=== PATIENT | female | born 1960 | race Caucasian/White ===

== ENCOUNTER 2024-05-13 12:51 | Day surgery (SDC) | payer OTHER, SELFPAY ==
[2024-05-13] VITALS (7 sets, daily range): BP systolic 110–155; BP diastolic 61–87; PULSE 104–117; RESP 14–18; TEMP 36.2–36.4; O2SAT 96–99
--- NOTE | ~2024-05-13 | CT_ITS ---
Non-contrast CT scan of the Abdomen and Pelvis Clinical indication: Kidney stones Technique: 2.5 mm axial scans were obtained through the abdomen and pelvis without intravenous or or al contrast. Dose reduction technique was used on this scan by utilizing automated exposure control a nd iterative reconstruction technique. The dose-length product (DLP) was 1302.85 mGy-cm. Findings: Images through the lung bases reveal bibasilar scarring or atelectasis. There is a 5 mm mid to distal left ureteral stone (axial image 128), with moderate left hydroureteron ephrosis to this level. There is an 8 mm stone at the right UVJ region, with severe right hydroureter onephrosis to this level. Additional 1.3 cm ovoid stone at the right lower poles present. Additional punctate nonobstructing right renal stones are probably present. The liver, spleen, pancreas, and adrenals appear normal. Cholecystectomy clips are present. There is mild atherosclerotic calcification of the abdominal aorta. 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 There is no evidence of bowel obstruction. Images through the pelvis were performed. There is no evidence of ascites or lymphadenopathy. Urinary bladder unremarkable. No pelvic mass seen. Status post hysterectomy. Impression: 8 mm right UVJ stone, though severe right hydroureteronephrosis to this level. 5 mm mid to distal left ureteral stone, with moderate left hydroureteronephrosis to this level. Additional nonobstructing right renal stones, as above. Reviewed, dictated and finalized at [facility]. Impression: 8 mm right UVJ stone, though severe right hydroureteronephrosis to this level. 5 mm mid to distal left ureteral stone, with moderate left hydroureteronephrosi s to this level. Additional nonobstructing right renal stones, as above.
--- NOTE | ~2024-05-13 | XR_ITS ---
Supine and upright views of the abdomen Clinical history: Kidney stones Findings: Bowel gas pattern is nonspecific. No evidence for obstruction or free air. Also 8 mm distal ureteral stone the right side, as seen on CT scan performed concurrently. Multiple additional bilate ral renal stones seen on CT are relatively poorly seen radiographically. 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 Osseous structures are intact. Impression: 8 mm distal right ureteral stone likely is seen. Additional bilateral renal stones and left ureteral stone seen on CT performed concurrently are poorl y seen radiographically. Reviewed, dictated and finalized at location . Impression: 8 mm distal right ureteral stone likely is seen. Additional bilateral renal stones and left ureteral stone seen on CT performed concurrently are poorly seen radiographically.
--- NOTE | ~2024-05-13 | XR_ITS ---
EXAMINATION: XR retrograde pyelo w/stent BI DATE: 05/13/2024 14:43 INDICATION: Bilateral hydronephrosis. Bilateral ureteral stones stones. TECHNIQUE: 14 intraoperative fluoroscopic views of the abdomen and pelvis were obtained. I was not pr esent. Fluoroscopy exposure time was 47 seconds. COMPARISON: CT abdomen and pelvis 05/13/2024 FINDINGS: The retrograde pyelograms demonstrate bilateral hydronephrosis and hydroureter. The final i mages demonstrate bilateral internal ureteral stents in expected positions. IMPRESSION: 1. Bilateral hydronephrosis and hydroureter. 2. Bilateral internal ureteral stents in expected positions. Reviewed, dictated and finalized at location A.
[2024-05-13 13:48] LABS: Glucose Point of Care 225 mg/dl (65-105)
[2024-05-13] MEDS: LIDOCAINE HCL 2% GEL UROJET 10 ML PKG MUCOUS MEM (13:49)
--- NOTE | 2024-05-13 13:56 | P.PNAN_ITS ---
Anes - Initial Pre Proc Eval Procedure: Operation Date: 05/13/24 14:30 Proposed Procedures p Cystoscopy, Bilateral Ureteroscopy, Possible Bilateral Retrograde Pyelogram, Possible Bilateral Stone Extraction, Possible Bilateral Stent Placement, Possible Holmium Laser Procedure - Terrell Cardoso MD Date/Time: 05/13/24 13:56 Surgeon: Terrell Cardoso MD Pre Op Diagnosis: bilat kidney stones Patient Data Age: 63 Gender: F Height: 1.68 m Weight: 132.2 kg Allergies Allergy/AdvReac Type Severity Reaction Status Date / Time clarithromycin [From Biaxin] Allergy Unknown Other Verified 05/13/24 13:38 erythromycin base Allergy Unknown Other Verified 05/13/24 13:38 Laboratory Tests 05/13/24 13:45 POC Capillary Glucose 225 H mg/dl (65-105) Patient hx anesthesia problems: none Family hx anesthesia problems: none Results Review: All pre-operative results and documents have been reviewed as part of the pre- operative evaluation. [facility], [facility] Past Medical History Medical History (Updated 05/13/24 @ 13:57 by Savage Acosta MD) Diabetes Morbid obesity Surgical History Surgical History (Updated 05/13/24 @ 13:57 by Savage Acosta MD) H/O: hysterectomy Hx of tonsillectomy Anes - Eval Final PreProcedure Day of Procedure 05/13/24 13:56 Patient weight: morbidly obese Heart: regular rate and rhythm Lungs: clear to auscultation Airway: Mallampati scale class II Neurological: alert and oriented Last oral intake: 6 hours ASA classification: III Anesthetic plan: proceed Anesthesia type and monitoring: general LMA and standard monitoring Results Review: All pre-operative results and documents have been reviewed as part of the pre- operative evaluation. Informed Consent: The patient's anesthetic plan and its attendant risks and benefits were discussed with the patient/family/POA. Questions were solicited and answers provided to the satisfaction of the patient/family/POA.
[2024-05-13] MEDS: LACTATED RINGERS 1,000 ML 30 ML IV CONT (13:58)
--- NOTE | 2024-05-13 14:08 | WPDHPUPDATE1 ---
History and Physical Update Update Date/Time: 05/13/24 14:08 History and Physical has been reviewed, including an updated exam of the patient. There are NO changes in the patient's condition. Risks, benefits, and alternatives have been discussed and questions answered. Patient agrees to proceed with procedure.
[2024-05-13] MEDS: ceFAZolin 3 GM/D5W 100 ML 100 ML IVPB (14:12)
--- NOTE | 2024-05-13 14:39 | P.OP_ITS ---
Procedure Note - Detailed Date of Procedure 05/13/24 Pre-op Diagnosis bilat ureteral stones with UTI Post-op Diagnosis Same Procedure Performed Cystoscopy, bilateral retrograde pyelograms, bilateral ureteral stent placement 4.8 [place] contour Surgeon Terrell Cardoso MD Anesthesia General Description of Procedure Patient is taken the operative suite correctly identified. Once anesthesia was obtained she was placed in dorsal lithotomy position and prepped and draped usual sterile fashion. Twenty-two Kittitian scope was inserted the bladder. There were no tumors noted. Right ureteral orifice was cannulated with a [place] and a pyelogram was performed. We were able to manipulate a Sensor wire past the stone up into the kidney. 4.8 [place] contour stent was then placed with the proximal end coiled in the renal pelvis and the distal in the bladder. Similar procedure was performed on the left side. Bladder was drained. 2% viscous lidocaine was inserted into the urethra ends patient is taken recovery stable condition. She will be discharged home with pain meds and antibiotic. Will plan on repeating her culture in a week in scheduling bilateral ureteroscopy with laser and stone extraction in 2-3 weeks time. This completes dictation. Please send a copy of op note to my office. Estimated Blood Loss 0 Drains Yes Packing No Pathology None sent Complications No immediate complications Condition Stable Disposition PACU
[2024-05-13] MEDS: ACETAMINOPHEN 500 MG TABLET 1000 MG PO (16:02)
== END 2024-05-13 16:15 | disposition home or self-care (01) ==
PROVIDERS: PCP Family Medicine; Visit Provider Urology
PROC: (CPT 52352; principal; 2024-05-13 14:30)
DX: N20.1 Calculus of ureter (principal); N39.0 Urinary tract infection, site not specified; E11.9 Type 2 diabetes mellitus without complications; E66.01 Morbid (severe) obesity due to excess calories; Z68.42 Body mass index [BMI] 45.0-49.9, adult
CPT/HCPCS: 52332; 74018; 74176; 74420; 82948; A9270; C1758; C1769; C2617; J0690; J1100; J2405; J2704; J3010; J7120; Q9966

== ENCOUNTER 2024-05-27 10:02 | Outpatient (CLI) | payer OTHER, SELFPAY ==
--- NOTE | 2024-05-27 10:33 | ECG_ITS ---
Test Date: 2024-05-27 10:42:43 Measurements Intervals [place] Rate: 105 P: 52 KS: 145 QRS: -5 QRSD: 80 T: 45 QT: 325 QTc: 430 Interpretive Statements SINUS TACHYCARDIA LOW QRS VOLTAGE IN PRECORDIAL LEADS [QRS DEFLECTION < 1.0 mV IN CHEST LEADS] NONSPECIFIC T-WAVE ABNORMALITY BORDERLINE ECG No previous ECG available for comparison Electronically Signed On 05-27-2024 12:57:37 CDT by Zurdo Saavedra M.D.
== END 2024-05-27 10:03 | disposition home or self-care (01) ==
PROVIDERS: PCP Family Medicine; Visit Provider Urology
DX: E11.9 Type 2 diabetes mellitus without complications (principal); R94.31 Abnormal electrocardiogram [ECG] [EKG]
CPT/HCPCS: 93005

== ENCOUNTER 2024-05-31 02:08 | Day surgery (SDC) | payer OTHER, SELFPAY ==
[2024-05-26 15:47] VITALS: BMI 48.4
--- NOTE | 2024-05-26 15:55 | PC.NURSE ---
Report to the Outpatient Waiting Room, entrance under the green pavilion located off [facility], at time _0630_ on date _[id number]_. Planned Procedure Time: _0830_.? Time changes happen often and if your time is changed the preop area will call you the afternoon before. - You and your visitor will be asked to self-screen and do not enter if you have any COVID symptoms. Please call surgeon if you need to reschedule. - A mask is optional within the hospital at this time. Patients may have clear liquids (water, carbonated beverages, clear teas, apple juice) until 3 hours prior to surgery with a maximum of 20 ounces. - No food from midnight until time of surgery and no smoking Take only the following medications with a SIP of water on the morning of surgery: ___None DO NOT STOP ANY OF YOUR OTHER PRESCRIPTION MEDICATIONS PRIOR TO SURGERY EXCEPT THE FOLLOWING Medications to discontinue per physician None Date to take last dose Please no make-up, nail [place], hairspray, perfume, deodorant, or body powder the day of surgery.? No jewelry (including any body piercings) or valuables the day of surgery, leave them at home.? Please take a shower or bath the night before, or the morning of, surgery with an antibacterial soap.? Wear comfortable, loose fitting clothing.? - Jewelry must be removed prior to entering the operating room.? Rings and piercings that are not removed may be cut off. - The hospital will not accept responsibility for valuables.? - Please leave all valuables, including medications, at home the day of surgery. If you are going home after surgery, a licensed compressed air pile driver operator must drive you home.? - NO public transportation without another adult if you receive anesthesia. - We recommend that an adult stay with you for 24 hours following discharge. - We also recommend that you do not drive, make important decision, drink alcoholic beverages, or take any drugs that were not prescribed by your health care provider for at least 24 hours after your discharge time. Follow any additional instructions given to you from your surgeon. Telephone instructions given to _Sachi_and asked if any additional questions and then verbalized understanding. Patient advised to call surgeon office or pre surgery nurse liaison [phone] if any additional questions.
[2024-05-31] VITALS (8 sets, daily range): BP systolic 122–142; BP diastolic 65–90; PULSE 88–115; RESP 12–22; TEMP 36.9; O2SAT 93–100
--- NOTE | ~2024-05-31 | XR_ITS ---
EXAMINATION: XR retrograde pyelo w/stent BI DATE: 05/31/2024 09:25 INDICATION: Bilateral internal ureteral stent placement TECHNIQUE: Fluoroscopic images from a bilateral internal ureteral stent placement are submitted for romain stanton. 18 seconds of fluoroscopy time. FINDINGS: There are bilateral double-J internal ureteral stent projecting in expected position, with proximal C ope loop at the level of the renal pelvis. The distal loops are not visualized.. IMPRESSION: 1. Bilateral internal ureteral stent placement. Please refer to real-time procedural findings for d etails. Reviewed, dictated and finalized at location B. IMPRESSION: 1. Bilateral internal ureteral stent placement. Please refer to real-time pro cedural findings for details.
[2024-05-31] MEDS: LACTATED RINGERS 1,000 ML 30 ML IV CONT (06:45)
[2024-05-31 07:08] LABS: Glucose Point of Care 194 mg/dl (65-105)
--- NOTE | 2024-05-31 07:22 | WPDHPUPDATE1 ---
History and Physical Update Update Date/Time: 05/31/24 07:22 History and Physical has been reviewed, including an updated exam of the patient. There are NO changes in the patient's condition. Risks, benefits, and alternatives have been discussed and questions answered. Patient agrees to proceed with procedure. Proceed with cystoscopy, bilateral retrograde, bilateral ureteroscopy, possible laser stent placement.
--- NOTE | 2024-05-31 08:11 | WPDANESEPPF ---
Anes - Initial Pre Proc Eval Procedure: Operation Date: 05/31/24 08:30 Proposed Procedures p Cystoscopy, Bilateral Retrograde Pyelogram, Possible Ureteroscopy, Bilateral Stone Extraction, Bilateral Stent Placement, Possible Holmium Laser - Terrell Cardoso MD Date/Time: 05/31/24 08:11 Surgeon: Terrell Cardoso MD Pre Op Diagnosis: right ureteral stone Patient Data Age: 63 Gender: F Height: 1.68 m Weight: 136 kg Last Vital Signs Temp 98.4 F 05/31/24 07:42 Pulse 106 H 05/31/24 07:42 Resp 16 05/31/24 07:42 BP 132/74 05/31/24 07:42 Pulse Ox 93 05/31/24 07:42 O2 Del Method Room Air 05/31/24 07:42 Allergies Allergy/AdvReac Type Severity Reaction Status Date / Time sulfamethoxazole Allergy Severe Swelling Verified 05/31/24 07:35 [From Bactrim] of Lip/Tongue/Throat trimethoprim [From Bactrim] Allergy Severe Swelling Verified 05/31/24 07:35 of Lip/Tongue/Throat clarithromycin [From Biaxin] Allergy Unknown Other Verified 05/31/24 07:35 erythromycin base AdvReac Severe Abdominal Verified 05/31/24 07:35 Pain Home Medications Medication Instructions Recorded Confirmed Type acetaminophen 500 mg tablet 1,000 mg PO Q6H PRN Pain 05/26/24 05/31/24 History furosemide 40 mg tablet 40 mg PO DAILY 05/26/24 05/31/24 History glimepiride 4 mg tablet 4 mg PO BID 05/26/24 05/31/24 History loratadine-pseudoephedrine ER 10 1 tablet PO DAILY 05/26/24 05/31/24 History mg-240 mg tablet,extended [id number] (Claritin-D 24 Hour) metformin 500 mg tablet 500 mg PO BID 05/26/24 05/31/24 History semaglutide 7 mg tablet (Rybelsus) 7 mg PO DAILY 05/26/24 05/31/24 History Laboratory Tests 05/31/24 07:01 POC Capillary Glucose 194 H mg/dl (65-105) Patient hx anesthesia problems: none Family hx anesthesia problems: none Results Review: All pre-operative results and documents have been reviewed as part of the pre-operative evaluation. PMFSH Past Medical History Medical History Diabetes Morbid obesity Surgical History Surgical History H/O: hysterectomy Hx of tonsillectomy Social History Social History Smoking status: Never smoker Living arrangements: with family Spiritual care concerns: No Anes - Eval Final PreProcedure Day of Procedure 05/31/24 08:11 Patient weight: morbidly obese Heart: regular rate and rhythm Lungs: clear to auscultation Airway: Mallampati scale class II Neurological: alert and oriented Last oral intake: >/= 8 hours ASA classification: III Emergent: no Anesthetic plan: proceed Anesthesia type and monitoring: general LMA and standard monitoring Results Review: All pre-operative results and documents have been reviewed as part of the pre-operative evaluation. SUPRIYA HOPE 194 this am. Informed Consent: The patient's anesthetic plan and its attendant risks and benefits were discussed with the patient/family/POA. Questions were solicited and answers provided to the satisfaction of the patient/family/POA.
[2024-05-31] MEDS: ceFAZolin 3 GM/D5W 100 ML 100 ML IVPB (08:13)
--- NOTE | 2024-05-31 09:24 | W.PM.PROC2 ---
Procedure Note - Detailed Date of Procedure 05/31/24 Pre-op Diagnosis Bilateral ureteral stones, right renal stone Post-op Diagnosis Same Procedure Performed Cystoscopy, bilateral retrograde pyelograms, bilateral ureteroscopy with holmium laser, stone extraction, bilateral stent exchange Surgeon Terrell Cardoso MD Anesthesia General Findings 8 mm left ureteral calculus, 1 cm right ureteral calculus, 1.3 cm right renal calculus Description of Procedure Patient is taken to the operative suite correctly identified. Once anesthesia was obtained she was placed in dorsal lithotomy position and prepped and draped usual sterile fashion. Twenty-two [place]ian scope was inserted in the bladder. The left ureteral stent was grasped brought out the meatus. Sensor wire was passed through it. Rigid ureteral scope was inserted. The stone was localized in the mid ureter. Was too large to retrieve 1 piece. Using a holmium laser fiber we fragmented the stone into very small pieces. Pyelogram was then performed. 4.8 contour stent was then placed with the proximal end coiled in the renal pelvis and the distal in the bladder. Similar procedure was done on the right side. I then placed an access sheath in and placed a mini flexible ureteral scope up into the kidney. A large stone was localized in the lower pole area. Using the holmium laser we dusted the stone. Some of the larger fragments were retrieved and sent for analysis. Pyelogram was performed to confirm placement of the stent. 4.8 [place] contour stent was then placed with the proximal end coiled in the renal pelvis and the distal end in the bladder. Bladder was drained. 2% viscous lidocaine was inserted into the urethra. Patient was taken recovery stable condition. She will follow-up in a week's time for stent removal. This completes dictation. Please send a copy of op note to my office. Estimated Blood Loss 0 Drains Yes Packing No Pathology Yes Complications No immediate complications Condition Stable Disposition PACU
[2024-05-31 09:44] LABS: Glucose Point of Care 177 mg/dl (65-105)
[2024-05-31] MEDS: fentaNYL CITRATE INJ (*CRX) 100 MCG/2 ML VIAL 25 MCG IV PUSH ×2 (10:39→10:41)
[2024-05-31] MEDS: traMADol HCL (*CRX) 50 MG TABLET PO (10:49)
== END 2024-05-31 11:32 | disposition home or self-care (01) ==
PROVIDERS: PCP Family Medicine; Visit Provider Urology
PROC: (CPT 52352; principal; 2024-05-31 08:30)
DX: N20.2 Calculus of kidney with calculus of ureter (principal); E11.9 Type 2 diabetes mellitus without complications; E66.01 Morbid (severe) obesity due to excess calories; Z68.42 Body mass index [BMI] 45.0-49.9, adult
CPT/HCPCS: 52356; 74420; 82365; 82948; 88300; A9270; C1769; C1894; C2617; J0690; J2405; J2704; J3010; J7120; Q9966